=== PATIENT | male | born 1980 | race Caucasian/White ===

== ENCOUNTER 2016-10-11 18:00 | Emergency (ER) | payer OTHER ==
[~2016-10-11] VITALS: Ht 182.9 cm; Wt 120.2 kg
[~2016-10-11 18:00] MED LIST: ALPRAZOLAM0.5 M3 PO; AMOXICILLIN500 MG PO; AMOXIL 875 MG875 MG PO; ATENOLOL50 M1 PO; ATENOLOL50 MG PO; CLEOCIN HCL300 MG PO; DILAUDID2 MG PO; PERCOCET 325 MG1 TA2 PO; TRAMADOL50 MG PO; XANAX1 M1 PO
[2016-10-11 18:23] VITALS: BP 148/88
[2016-10-11] MEDS ORDERED: AUGMENTIN 875-1 EACH PO (19:21)
[2016-10-11] MEDS ORDERED: PERCOCET 5-3251 EACH PO (19:21)
--- NOTE | 2016-10-11 19:22 | ED THROAT/DENTAL COMPLAINT ---
History of Present Illness General Chief Complaint: Sore Throat, Dental Pain Stated Complaint: ABCESS IN MOUTH Source: patient Exam Limitations: no limitations Vital Signs & Intake/Output Vital Signs & Intake/Output Vital Signs Date Time Temp Pulse Resp B/P Pulse O2 O2 Flow FiO2 Ox Delivery Rate 10/11 1823 98.6 68 18 148/88 97 Room Air Allergies Coded Allergies: cat dander (Mild, UNKNOWN 10/04/15) Reconcile Medications Alprazolam 0.5 MG TAB 0.5 MG PO PRN ANXIETY (Reported) Alprazolam (Xanax) 1 MG TABLET 1 TAB PO BIDP PRN ANXIETY Amoxicillin 500 MG CAP 1 TAB PO TID DENTAL INFECTION Amoxicillin (Amoxil 875 MG Tablets) 875 MG TAB 1 TAB PO BID DENTAL ABSCESS Amoxicillin/Potassium Clav (Augmentin 875-125 Tablet) 875 MG-125 MG TABLET 1 TAB PO BID DENTAL INFECTION Atenolol 50 MG TABLET 1 TAB PO DAILY HTN (Reported) Atenolol 50 MG TABLET 1 TAB PO DAILY HTN CLINDAMYCIN HCL (Cleocin HCl) 300 MG CAP 1 TAB PO TID DENTAL ABSCESS HYDROMORPHONE HCL (Dilaudid) 2 MG TABLET 1 TAB PO Q6P PRN pain OXYCODONE HCL/ACETAMINOPHEN (Percocet 5-325 MG Tablet) 325 MG/5 MG TAB 1-2 TAB PO Q4-6 PRN PRN PAIN OXYCODONE HCL/ACETAMINOPHEN (Percocet 5-325 MG Tablet) 325 MG/5 MG TAB 1-2 TAB PO Q4-6 PRN PRN PAIN Oxycodone HCl/Acetaminophen (Percocet 5-325 MG Tablet) 5 MG-325 MG TABLET 1 TAB PO Q6HR PRN PAIN OXYCODONE HCL/ACETAMINOPHEN (Percocet 5-325 MG Tablet) 325 MG/5 MG TAB 1-2 TAB PO Q4-6 PRN PRN PAIN TRAMADOL HCL (Tramadol) 50 MG TABLET 1-2 TAB PO Q6P PRN PAIN Triage Note: COMPLAINS OF L SIDE DENTAL PAIN SINCE SUNDAY, HAS APPOINTMENT NEXT SUNDAY Triage Nurses Notes Reviewed? yes Onset: Gradual Duration: day(s): (3) Timing: remote history Injury Environment: home Severity: moderate Severity Numbers: 8 No Modifying Factors: none Modifying Factors: Worsens With: other (tryign to eat). HPI: Patient is a 36 yo male presenting to the emergency department with cc of left lower jaw line pain and swelling x 4 days. no fevers or chills. has been taking ibuprofen without relief. Pain radiates to the left ear at times. History of similar symptoms. He has an appointment with his oral surgeon next Sunday to have left lower teeth pulled. No nausea or vomiting. Denies any abdominal pain. No trouble swallowing. (JC VICENTE) Past History Travel History Traveled to [place] past 21 day No Medical History Any Pertinent Medical History? see below for history Neurological: NONE EENT: NONE Cardiovascular: hypertension Respiratory: NONE Gastrointestinal: NONE Hepatic: NONE Renal: NONE Musculoskeletal: NONE Psychiatric: anxiety Endocrine: NONE Blood Disorders: NONE Cancer(s): NONE WELFARE DIRECTOR/Reproductive: NONE Surgical History Surgical History: non-contributory Psychosocial History What is your primary language Portuguese Tobacco Use: Never used ETOH Use: denies use Illicit Drug Use: denies illicit drug use Family History Hx Contributory? No (JC VICENTE) Review of Systems Review of Systems Constitutional: Reports: no symptoms. Comments Review of systems: See HPI, All other systems negative. Constitutional, no chills fever or weight loss HEENT: No visual changes no sore throat no congestion Cardiovascular: No chest pain ,palpitation , orthopnea or ankle swelling Skin, no jaundice no rashes Respiratory: No dyspnea cough sputum or hemoptysis GI: No nausea no vomiting Muscle skeletal: no back pain, no neck pain, Neurologic: No numbness no confusion Psych: No stress anxiety or depression,. Heme/endocrine: No bruising no bleeding no polyuria or polydipsia Immunology: No splenectomy or history of AIDS (JC VICENTE) Physical Exam Physical Exam General Appearance: well developed/nourished, no apparent distress, alert, awake , comfortable Mouth/Throat: or edema noted over the left lower jawline. Comments: Well-developed well-nourished person in no acute distress HEENT: Normal EENT exam, extraocular motion intact, no nystagmus. Pupils equally round and reactive to light and accommodation. Nose is atraumatic. External auditory canal and Tympanic membranes clear. Pharynx normal. No swelling or edema. Tenderness to palpation over the left lower jawline. Moderate edema over this area. Clearing secretions without difficulty. No trismus. Neck: Supple, no lymphadenopathy, normal range of motion without pain or tenderness Back: Nontender Cardiovascular: Regular rate and rhythms no murmurs rubs or gallops, normal JVP Respiratory: Chest nontender. No respiratory distress.breath sounds clear to auscultation bilaterally Neuro: Alert oriented x3 Skin: No appreciable rash on exposed skin, skin is warm and dry. Psych: Mood and affect is normal, memory and judgment is normal. Core Measures ACS in differential dx? No Severe Sepsis Present: No Septic Shock Present: No (JC VICENTE) Progress Differential Diagnosis: dental abscess, dental Lynne, gingivitis, peritonsillar abscess Plan of Care: Patient started on antibiotics and pain medication. He will follow-up with a dentist this week or return for worsening symptoms or concerns. (JC VICENTE) Departure Departure Time of Disposition: 1919 Disposition: HOME OR SELF CARE Condition: Stable Clinical Impression Primary Impression: Dental abscess Referrals: PATIENT HAS NO PRIMARY CARE DR (PCP/Family) Additional Instructions: Follow-up with your dentist call to make an appointment. Take antibiotics and pain medication as prescribed. Increase fluids. Return for worsening symptoms or concerns. Stick with a soft food diet until symptoms improve. Departure Forms: Customer Survey General Discharge Information Prescriptions: Current Visit Scripts Amoxicillin/Potassium Clav (Augmentin 875-125 Tablet) 1 TAB PO BID #20 TAB Oxycodone HCl/Acetaminophen (Percocet 5-325 MG Tablet) 1 TAB PO Q6HR PRN PAIN #10 TAB (JC VICENTE) PA/HEM INSPECTOR Co-Sign Statement Statement: ED Attending supervision documentation- [] I saw and evaluated the patient. I have also reviewed all the pertinent lab results and diagnostic results. I agree with the findings and the plan of care as documented in the PA's/HEM INSPECTOR's documentation. [X] I have reviewed the ED Record and agree with the PA's/HEM INSPECTOR's documentation. [] Additions or exceptions (if any) to the PAs/HEM INSPECTOR's note and plan are summarized below: [] (JOANNA VILLA,JERMAINE)
== END 2016-10-11 19:39 ==
LOC: ERH 18:00
DX: K04.7 Periapical abscess without sinus (principal)